=== PATIENT | female | born 1965 | race Caucasian/White ===

== ENCOUNTER 2021-03-13 14:11 | Emergency (ER) | payer MEDICAID, SELFPAY ==
[~2021-03-13] VITALS: Ht 167.6 cm; Wt 77.1 kg
[2021-03-13 14:24] VITALS: BP_SYST 144
[2021-03-13] MEDS ORDERED: LORA-259 PO (15:17)
[2021-03-13] MEDS ORDERED: PARO40TA80 PO (15:17)
[2021-03-13] MEDS ORDERED: LORA10TA7 PO (15:17)
[2021-03-13 16:05] VITALS: BP_SYST 144
== END 2021-03-13 16:08 | disposition home or self-care (01) ==
LOC: SED 14:11
DX: J01.90 Acute sinusitis, unspecified (principal); Z79.899 Other long term (current) drug therapy
CPT/HCPCS: 99283